=== PATIENT | male | born 1970 | race Caucasian/White ===

== ENCOUNTER 2024-07-14 09:30 | Emergency (ER) | payer SELFPAY ==
[2024-07-14 09:33] VITALS: BP 150/92
--- NOTE | 2024-07-14 09:56 | ED.GENMED ---
History of Present Illness
General
Chief Complaint: Back Pain
Source: patient
Time Seen by Provider: 07/14/24 09:48
History of Present Illness
History of Present Illness:
53-year-old male presents to the emergency room complaining of low back pain. Patient states he has chronic back pain but it is worse over the past 24 to 48 hours. Pain is on the right side. Does not radiate down his leg but does radiate to his
testicle. Movement makes the pain worse. Patient has a history of cervical disc disease for which she has had surgery. He was also told around that time that he had disc herniations in his lumbar spine. He does not see anyone for his low back
pain. He does not take any prescription medications. He denies IV drug use. He denies any bowel or bladder dysfunction. He denies numbness, weakness or tingling in his lower extremities. He has chronic paresthesias related to his cervical
surgery.
Past History
Past History
ED Past Medical History: None and Other (Rib fractures, blunt trauma May 2017)
Social History
Tobacco: Smoker
Alcohol: Daily
Drug: Marijuana
Personal: Single
Phy Exam
Physical Exam
Physical Exam:
General: Awake, Alert, Oriented X3. Appears uncomfortable with movement
Vitals: unremarkable
Head: Atraumatic
Eyes: Pupils equal, EOMI
Throat: Airway intact, no exudates
Neck: Trachea midline
Lungs: Clear and equal b/l
Heart: Regular rate, no murmurs
Abd: Soft, Nontender, No pulsatile mass
Back: No tenderness with palpation or percussion of the thoracic or lumbar spine, positive tenderness paraspinal musculature on the right
Neuro: Nonfocal
Skin: Warm, dry, no rash
Extremities: pulses equal b/l, no edema
Course
Orders/Labs/Results
Orders:
Orders
07/14/24 09:53
Ketorolac [Toradol] 15 mg IV NOW STA
07/14/24 09:54
CT Abd/pel Without Iv Or Oral Urgent
Comment:
Reason For Exam: r back pain
07/14/24 10:40
Basic Metabolic Panel Urgent
Complete Blood Count/With Diff Urgent
07/14/24 11:47
Urinalysis Reflex To Culture Urgent
Date Specimen was Collected: 07/14/24
Time Specimen was Collected: 11:45
Abnormal Lab Results
07/14/24
10:40
MCH 31.2 H pg
(27.0-31.0)
Absolute Monos (auto) 0.7 H 10^3/uL
(0.1-0.6)
Glucose 114 H mg/dl
(70-99)
07/14/24 10:40
07/14/24 10:40
Vital Signs
Initial and Last Documented VS:
Initial Vital Signs
Temp Pulse Resp BP Pulse Ox
97.8 F 73 20 150/92 99
07/14/24 09:33 07/14/24 09:33 07/14/24 09:33 07/14/24 09:33 07/14/24 09:33
Last Documented Vital Signs
Temp Pulse Resp BP Pulse Ox
97.8 F 68 20 139/86 97
07/14/24 09:33 07/14/24 12:37 07/14/24 09:33 07/14/24 12:37 07/14/24 12:37
MDM/Problems Addressed
Differential Diagnosis Includes:
kidney stone, uti, low back strain
*Radiology
Radiology exam reviewed: radiology read reviewed
*Pulse Oximetry
Patient hypoxic: no
*Critical Care Note
Total Time (30-74mins, 75-104mins- exclusive of procedures): Not Applicable
ED Attending Note
-
Portions of this chart may have been created with voice recognition software.� Occasional wrong word or��sound alike� substitutions may have occurred due to the inherent limitations of voice recognition software.
Discharge Plan
Departure
Patient Disposition: Home (Routine Discharge)
Date of Disposition: 07/14/24
Time of Disposition: 12:04
Patient with high blood pressure during this ER visit?: Yes
Condition: Good
Discharge Problem:
Low back pain
Instructions: Low Back Pain (DC), BLOOD PRESSURE
Prescriptions:
New
prednisone 20 mg tablet
40 mg PO DAILY Qty: 8 0RF
No Action
cephalexin 500 mg capsule
500 mg PO QID 7 Days Qty: 28 0RF
amoxicillin-pot clavulanate 875-125 mg tablet
1 tab PO BID Qty: 20 0RF
Referrals:
Richard Lares MD [Active] -
Donaldo Dominguez MD [Family Provider] -
Activity Restrictions/Additional Instructions:
Your workup today suggest your back pain is due to degenerative changes in the lumbar spine. I have prescribed a short course of steroids to help with this. You can also take Tylenol 650 mg every 6 hours as well as ibuprofen 400 mg every 6 hours.
You can also try [id number] lidocaine patch. I provided you contact information for a back pain specialist, Dr. Lares. Please call for the next available appointment. When you call let them know you are in the emergency room for back
pain.
Interventions
Interventions:
*Risk Screen - Suicide Last Done: 07/14/24 09:33
*General Assessment Last Done: 07/14/24 10:44
*Neglect/Abuse Screening Last Done: 07/14/24 10:44
ED- Fall Risk Assessment Last Done: 07/14/24 11:41
*ED COVID-19 Vaccine History Last Done: 07/14/24 10:45
*Nursing Disposition Last Done: 07/14/24 12:47
ED-Musculoskeletal Assessment Last Done: 07/14/24 11:41
Discharge Date and Time
Discharge Date/Time: 07/14/24 12:50
Print Language: PORTUGUESE
[2024-07-14] MEDS: TORADOL 15 MG IV (10:41)
[2024-07-14 10:46] VITALS: BMI 27.0
[2024-07-14 10:54] LABS: % Basophils 1.3 % (0-2); % Eosinophils 2.9 % (0-6); % Immature Granulocytes 0.2 % (0-0.5); % Lymphocytes 24.3 % (20.5-51.1); % Monocytes 8.4 % (1.7-9.3); % Neutrophils 62.9 % (42.2-75.2); Absolute Basophils 0.1 10^3/uL (0-0.2); Absolute Eosinophils 0.3 10^3/uL (0-0.7); Absolute Lymphocytes 2.1 10^3/uL (1.2-3.4); Absolute Monocytes 0.7 10^3/uL (0.1-0.6); Absolute Neutrophils 5.5 10^3/uL (1.4-6.5); Hemoglobin 15.2 g/dL (13.0-18.0); Mean Corp Hgb Conc. 34.5 g/dL (33.0-37.0); Mean Corpuscular Hgb 31.2 pg (27.0-31.0); Mean Corpuscular Volume 90.3 fL (80.0-94.0); Mean Platelet Volume 9.8 fL (7.4-10.4); Nucleated Red Blood Cells % 0 % (-); Platelet Count 267 10^3/uL (130-400); Red Blood Cell Count 4.87 10^6/uL (4.70-6.10); White Blood Cell Count 8.7 10^3/uL (4.8-10.8)
[2024-07-14 11:04] LABS: Blood Urea Nitrogen 18 mg/dl (9-20); Calcium 9.5 mg/dl (8.4-10.2); Carbon Dioxide 26 mmol/L (22-30); Chloride 102 mmol/L (98-107); Estimated Creatinine Clearance 119 ml/min; Glucose 114 mg/dl (70-99); Potassium 4.6 mmol/L (3.5-5.1); Sodium 140 mmol/L (135-145); eGFR > 60.00
[2024-07-14 12:11] LABS: Urine Albumin Negative (Neg - Trace); Urine Bilirubin Negative (Negative); Urine Character Clear (Clear); Urine Color Yellow; Urine Glucose Negative (Negative); Urine Ketone Negative (Negative); Urine Leukocyte Negative (Negative); Urine Nitrite Negative (Negative); Urine Occult Blood Negative (Negative); Urine Urobilinogen Negative (Neg - 1+); Urine pH 6.5 (5.0-9.0)
[2024-07-14 12:37] VITALS: BP 139/86
== END 2024-07-14 12:50 | disposition home or self-care (01) ==
LOC: EMR 09:30
PROVIDERS: EMERGENCY PHYSICIAN Emergency Medicine; FAMILY PHYSICIAN Family Medicine
DX: M54.50 Low back pain, unspecified (principal); F17.200 Nicotine dependence, unspecified, uncomplicated
CPT/HCPCS: 99284; 96374; 74176; 80048; 81003; 85025

== ENCOUNTER 2025-09-08 14:00 | Inpatient (IN) | payer SELFPAY ==
[2025-09-07] VITALS (9 sets, daily range): BP systolic 137–166; BP diastolic 84–103; BMI 25.7; BMI 24.9
--- NOTE | 2025-09-07 10:19 | ED.GENMED ---
History of Present Illness
General
Chief Complaint: Chest Pain
Time Seen by Provider: 09/07/25 10:19
History of Present Illness
History of Present Illness:
FOCUSED PAST MEDICAL HISTORY
- Smoker
REVIEW OF OLD RECORDS
- Has a history of polysubstance abuse and was admitted with abdominal pain with questionable sepsis and high lactic in November 2022
Note:
CHIEF COMPLAINT(S)
Chest pressure and left-sided weakness.
HISTORY OF PRESENT ILLNESS
The patient is a 54-year-old male who reports experiencing chest pressure that began on Sunday morning. The pressure has been constant since onset. Additionally, he describes left-sided weakness in both the arm and leg, with a noted difference in
sensation compared to the right side. The weakness and sensory abnormalities are accompanied by a 'weird feeling' on the left side. The patient denies any previous history of stroke. He reports poor blood pressure control recently, with a home blood
pressure reading of 164/110 last . Currently, the patients blood pressure is 149/95. He denies slurred speech or aphasia, and his communication appears intact.
REVIEW OF SYSTEMS
- Neurological: Left-sided weakness, sensory differences between left and right side, no slurred speech.
PHYSICAL EXAM
General: Alert, no acute distress.
Skin: Warm, dry.
Head: Normocephalic, atraumatic.
Neck: Supple, trachea midline.
Eyes, Ears, Nose, Mouth, and Throat: Oral mucosa moist.
Cardiovascular: Normal peripheral perfusion, No edema. Good strong pulse in the left radial artery.
Respiratory: Respirations are non-labored.
Gastrointestinal: Abdomen nondistended.
Back: Normal range of motion, Normal alignment.
Musculoskeletal: Normal range of motion,
Neurological: 4+ out of 5 strength in the left upper and left lower extremities, sensory deficits to the left side including face and extremities, normal coordination alert and oriented to person, place, time, and situation. Left-sided weakness and
sensory abnormalities, no slurred speech or aphasia.
Psychiatric: Cooperative, appropriate mood & affect.
PLAN
- Obtain a CT scan to further evaluate the cause of symptoms.
- Monitor blood pressure and consider antihypertensive management as indicated.
- Consider additional diagnostic tests to assess for potential cerebrovascular events.
DIFFERENTIAL DIAGNOSIS
The Differential Diagnosis includes, in no particular order and is not limited to:
1. Cerebrovascular Accident (Stroke)
2. Transient Ischemic Attack
3. Hypertensive Emergency
4. Myocardial Infarction
5. Peripheral Neuropathy
6. Multiple Sclerosis
7. Brain Tumor
8. Migraine with Aura
9. Corrales�s Palsy
10. Cervical Radiculopathy
RADIOLOGY
- CT imaging obtained
EKG
- Sinus 76, normal axis, no acute ST abnormality
LABS
- CBC, chemistries, troponin unremarkable
UPDATE
-SUMMARY OF ENCOUNTER
The patient, a 54-year-old male, was seen in the emergency department due to chest pressure and left-sided weakness, with concern for possible cerebrovascular events. A CT scan was conducted, which did not reveal definitive findings of stroke, but
the symptoms, particularly the subjective left-sided weakness, raised concerns for possible lacunar infarcts, likely related to prolonged high blood pressure. Due to the persistent symptoms and chest discomfort, the decision was made to admit the
patient for further monitoring to better evaluate the cause of symptoms and monitor blood pressure closely.
DISPOSITION
Admission to the hospital for further evaluation and monitoring.
ASSESSMENT
The assessment focuses on potential cerebrovascular accident (stroke) or transient ischemic attack given the left-sided weakness and sensory abnormalities. Persistent high blood pressure raises concern for possible lacunar infarcts. The combination
of these symptoms with chest pressure necessitates further evaluation in a hospital setting.
INDEPENDENT REVIEW OF LABS AND INTERPRETATION OF TESTS
My independent interpretation of the CT scan shows no definite findings indicative of stroke but raises concerns about possible lacunar infarcts.
MEDICAL DECISION MAKING
-Number and Complexity of Problems Addressed: Chronic conditions affecting care include hypertension. Differential diagnosis considerations include: Cerebrovascular Accident (Stroke), Transient Ischemic Attack, Hypertensive Emergency, Myocardial
Infarction, Peripheral Neuropathy, Multiple Sclerosis, Brain Tumor, Migraine with Aura, Corrales�s Palsy, Cervical Radiculopathy.
-Data:
Category [address] scan was independently interpreted, revealing no definitive stroke but raising concern for possible lacunar infarcts.
Category 3
Discussion of management with other physicians regarding hospital admission for further monitoring and evaluation of symptoms.
-Risk:
Due to the combination of symptoms and persistent issues, escalation of care via admission was deemed necessary to ensure patient safety.
DIAGNOSIS
- Possible Cerebrovascular Accident (Stroke), ICD-10: I63.9
- Hypertensive Heart Disease without Heart Failure, ICD-10: I11.9
Note: Formal diagnostic testing and further observations are required during the hospital stay to ascertain and confirm the diagnosis precisely.
Past History
Past History
ED Past Medical History: None and Other (Rib fractures, blunt trauma May 2017)
Social History
Tobacco: Smoker
Alcohol: Daily
Drug: Marijuana
Personal: Single
Phy Exam
Physical Exam
Physical Exam:
See HPI
Scores
Heart Score for Chest Pain Patients
STEMI patient?: Not applicable
Course
Orders/Labs/Results
Orders:
Orders
09/07/25 09:53
EKG [Electrocardiogram (*1)] Urgent
Reason for Study: Chest Pain
EKG- Treatment ONCE
09/07/25 10:12
Cardiac Monitoring- Treatment ONCE
Vital Signs As Directed
Frequency: Other
09/07/25 10:13
Complete Blood Count/With Diff Urgent
Comprehensive Metabolic Panel Urgent
PTT Urgent
Prothrombin Time Urgent
Troponin I Urgent
09/07/25 10:51
CT Head & Neck Angio W/wo IV Urgent
Comment:
Reason For Exam: 3d of acute L sided weakness, sens deficits
Abnormal Lab Results
09/07/25
10:13
RBC 4.61 L 10^6/uL
(4.70-6.10)
MCV 94.4 H fL
(80.0-94.0)
MCH 32.5 H pg
(27.0-31.0)
Absolute Monos (auto) 0.7 H 10^3/uL
(0.1-0.6)
Monocytes % 11.2 H %
(1.7-9.3)
Creatinine 0.6 L mg/dL
(0.7-1.3)
Glucose 103 H mg/dl
(70-99)
09/07/25 10:13
09/07/25 10:13
Vital Signs
Initial and Last Documented VS:
Initial Vital Signs
Temp Pulse Resp BP Pulse Ox
36.9 C 80 17 143/91 96
09/07/25 09:56 09/07/25 09:56 09/07/25 09:56 09/07/25 09:56 09/07/25 09:56
Last Documented Vital Signs
Temp Pulse Resp BP Pulse Ox
36.9 C 83 17 155/101 96
09/07/25 09:56 09/07/25 13:15 09/07/25 13:15 09/07/25 13:00 09/07/25 13:15
*Pulse Oximetry
SaO2: 96
Oxygen Mode of Delivery: Room air
Patient hypoxic: no
*Critical Care Note
Total Time (30-74mins, 75-104mins- exclusive of procedures): Not Applicable
ED Attending Note
-
Portions of this chart may have been created with voice recognition software.� Occasional wrong word or��sound alike� substitutions may have occurred due to the inherent limitations of voice recognition software.
Discharge Plan
Departure
Prescriptions:
No Action
cephalexin 500 mg capsule
500 mg PO QID 7 Days Qty: 28 0RF
amoxicillin-pot clavulanate 875-125 mg tablet
1 tab PO BID Qty: 20 0RF
prednisone 20 mg tablet
40 mg PO DAILY Qty: 8 0RF
Referrals:
UNKNOWN - PT NOT,INTERVIEWE [Family Provider]
Interventions
Interventions:
*Risk Screen - Suicide Last Done: 09/07/25 09:56
*General Assessment Last Done: 09/07/25 09:56
*Neglect/Abuse Screening Last Done: 09/07/25 09:56
*ED COVID-19 Vaccine History Last Done: 09/07/25 12:47
*ED Influenza Vaccine History Last Done: 09/07/25 12:47
ED- Cardiac Assessment Last Done: 09/07/25 12:47
Discharge Date and Time
Print Language: LUXEMBOURGISH
[2025-09-07 10:22] LABS: Hematocrit 43.5 % (39.0-52.0); Hemoglobin 15.0 g/dL (13.0-18.0); Mean Corp Hgb Conc. 34.5 g/dL (33.0-37.0); Mean Corpuscular Volume 94.4 fL (80.0-94.0); Nucleated Red Blood Cells % 0 % (-); Platelet Count 223 10^3/uL (130-400); Red Cell Dist. Width 12.4 % (11.5-14.5)
[2025-09-07 10:35] LABS: APTT 28.3 Sec (23.4-35.0); INR 0.96; PT 13.1 Sec (11.4-14.6)
[2025-09-07 10:38] LABS: ALT (SGPT) 40 U/L (0-50); AST (SGOT) 28 U/L (17-59); Albumin 4.1 g/dl (3.5-5.0); Alkaline Phosphatase 90 U/L (38-126); Blood Urea Nitrogen 14 mg/dl (9-20); Calcium 8.9 mg/dl (8.4-10.2); Carbon Dioxide 26 mmol/L (22-30); Chloride 107 mmol/L (98-107); Glucose 103 mg/dl (70-99); Potassium 4.2 mmol/L (3.5-5.1); Sodium 139 mmol/L (135-145); Total Protein 7.0 g/dl (6.3-8.2); eGFR > 60.00
[2025-09-07 10:49] LABS: Troponin I < 0.012 ng/ml
--- NOTE | 2025-09-07 15:27 | HPS.HSE ---
Family Physician
-
Family Physician: INTERVIEWE UNKNOWN - PT NOT
Chief Complaint
-
Intermittent chest pain and left-sided paresthesia
History of Present Illness
Patient is a 54 years old male with long history of tobacco smoking presents to the emergency room with few days of occasional midsternal chest pain and pressure which is not attributed to activities, nonpositional. He denies any syncope. Over the
last 2 to 3 days he also complains of a left face, left upper and lower extremity paresthesia and mild left lower extremity weakness felt on ambulation. He has occasional headache. Given persistent symptoms he presents to the emergency room for
evaluation
Medical History
Past Medical History
Past Medical History: Reports HTN; Denies CAD, Seizures or Valvular Disease
Additional Past Medical History:
Abdominal aortic aneurysm, untreated hypertension, abdominal aortic aneurysm
Past Surgical History: Reports Orthopedic
Social History
Tobacco: Smoker
Drug: Marijuana
Family History
Family History: Not pertinent
Allergies / Home Medications
Allergies reflects when Allergies were last updated in [facility].
Home Medications with original date entered in [facility]
Allergy/Medication List:
Allergies
Allergy/AdvReac Type Severity Reaction Status Date / Time
No Known Allergies Allergy Verified 07/14/24 09:33
Home Medications
No Meds [No Current Medications] 09/07/25
Review of Systems
-
A 12 point ROS was completed and negative except as noted: Yes
Physical Exam
Vital Signs
Vital Signs
Temp Pulse Resp BP Pulse Ox
98.5 F 86 20 148/92 96
09/07/25 09:56 09/07/25 15:15 09/07/25 15:15 09/07/25 15:00 09/07/25 15:15
Physical Exam
General: Well Developed, Well Nourished and No Apparent Distress
HEENT: NormoCephalic, Moist mucous membranes and Atraumatic
Respiratory: Clear
Cardiac: S1/S2 and Regular Rhythm; No Murmur or Rub
GI: Soft, Non Tender, Non Distended and Normal Bowel Sounds; No Organomegaly
Rectal: Deferred by Provider
Musculoskeletal: No Clubbing, No Cyanosis and No Edema
Skin: No Rash
Neuro: Awake, Alert, Oriented, AO x 3 and Other (Mild left face, upper extremity, lower extremity paresthesia with normal strength)
Laboratory Results
-
09/07/25 10:13
09/07/25 10:13
Laboratory Results
PT 13.1 Sec (11.4-14.6) 09/07/25 10:13
INR 0.96 09/07/25 10:13
APTT 28.3 Sec (23.4-35.0) 09/07/25 10:13
Total Bilirubin 0.3 mg/dl (0.2-1.3) 09/07/25 10:13
AST 28 U/L (17-59) 09/07/25 10:13
ALT 40 U/L (0-50) 09/07/25 10:13
Alkaline Phosphatase 90 U/L (38-126) 09/07/25 10:13
Troponin I < 0.012 ng/ml 09/07/25 10:13
Impression/Plan
-
IMPRESSION:
Intermittent chest pain
Persistent left face, upper and lower extremity paresthesia
Untreated hypertension
Tobacco smoking
Abdominal infrarenal aortic aneurysm 3.3 cm incidental imaging dated back to 12/21
Cervical spine disease with prior surgery
Imaging
CTA
1. No acute intracranial abnormality identified. There are bilateral focal areas of these attenuation along the thalami as above, for bithalamic chronic lacunar infarcts. As warranted, could be further evaluated with MRI.
2. Calcific atherosclerotic changes of the carotid arteries without flow-limiting stenosis.
3. Mild stenosis at the origin of the right vertebral artery. High-grade stenosis at the origin of the left vertebral artery. Moderate narrowing of the left vertebral at the level of C6. Moderate narrowing of the basilar artery probably related to
atherosclerosis.
4. High riding jugular bulb on the right as above.
5. Advanced changes of dental disease as described.
6. Emphysema. The patient should be assessed for an annual low dose lung cancer CT program, as pulmonary emphysema is an independent risk factor for lung cancer.
PLAN:
Intermittent chest pain nonexertional, pressure-like.
Exertional shortness of breath
ASCVD risk factors including hypertension, tobacco smoking, AAA has not evidence of PAD/ASCVD
ECG normal sinus rhythm without ischemia
Troponin negative NAD
KHADRA score 1
Continue telemetry monitoring
Serial cardiac markers and ECG
Echocardiogram
Consider cardiology evaluation while inpatient versus outpatient follow-up
Ultrasound to evaluate abdominal aortic aneurysm size/growth
If persistent symptoms, consider imaging cervical spine
Persistent left face, upper and lower extremity paresthesia
Exam with mild left-sided paresthesia at face, upper and lower extremity otherwise unremarkable with good bilateral strength
CTA as above
Additional diagnosis TIA/evolving CVA versus hypertensive urgency
Admit for neurologic evaluation
MRI of the brain
Lipid profile
Hemoglobin A1c
Start aspirin and high potency statin
Goal normotension. Monitor BP.
Start lisinopril 10 mg and monitor BP response
Tobacco smoking disorder.
COPD by imaging.
Complains of chronic cough.
Stable respiratory status upon presentation.
Counseling on quitting tobacco.
Start nicotine patch
--- NOTE | 2025-09-07 15:28 | CM ---
CM met with pt bedside
Pt resides alone in [place] with [address]
Pt is independent with his ADLs, no DMEs
Pt does not drive as without license at this time
Friends help with errands
Pt is employed at an [employer] and works in [employer] as well
Pt with out insurance as employer does not offer- has not applied for MA before
Pt pays cohen for physician visits and meds
PCP- Donaldo Waller (last visit 3-4 months prior)
Rx- [facility]
Pt is admitted under OBS- form not issued as pt uninsured
Referral made to [facility] for MA veto
Discharge Disposition- anticipate home no needs
[2025-09-07] MEDS: ASPIRIN 325 MG PO (15:51)
[2025-09-07] MEDS: PLAVIX 300 MG PO (15:51)
--- NOTE | 2025-09-07 16:19 | CON.NEURO4 ---
Consultation - Neurology 4
-
CONSULTING PHYSICIAN: Dr. Emeka Alfaro
REFERRING PHYSICIAN: Dr. Rayray Rodriguez
DICTATED BY: Dr. Emeka Alfaro
DATE/TIME OF REQUEST: 09/07/2025
DATE/TIME OF CONSULTATION: 09/07/2025
Reason for Consultation: Left sided weakness and numbness
ASSESSMENT AND PLAN:
The patient appears to have a right hemispheric stroke likely subcortical, and the etiology of stroke is small vessel disease secondary to uncontrolled hypertension.
. CT of the head does not show any acute intracranial abnormality, however the CT of the head shows chronic bilateral thalamic infarcts.
. The CTA of the head and neck shows a high-grade stenosis of the left vertebral artery and moderate narrowing of the basilar artery.
. The plan is to get MRI of the brain without contrast, echocardiogram and start the patient on dual antiplatelet therapy with aspirin 81 mg daily and Plavix 75 mg daily. The patient will be loaded with aspirin 325 mg x 1 and Plavix 300 mg x 1.
The patient will also be on atorvastatin 40 mg daily.
History of Present Illness:
The patient is a 54 years old male with a long history of tobacco use, who presented to the emergency room with complaint of left upper and lower extremity numbness and weakness, that started about 3 days ago. The patient did not come earlier to
the hospital but because of the persistence of symptoms, he presented to the ER for evaluation. He says that he does not have control over his left arm and left leg. He says that his blood pressure was high at home and was 164/112. He denies
taking any prescription medication for hypertension. He denies history of diabetes. The last known well time was about 3 days ago. There is no history of stroke in the past. The patient is not on any blood thinners at home. The NIHSS is 5. The
patient was not a candidate for TNK as he was outside the time window.
Review of Systems:
The patient denies headache, dizziness, chest pain, shortness of breath, fever, chills, nausea and vomiting.
Neurologic Examination:
The patient is alert and oriented x 3,
Speech is clear,
The cranial nerves II to XII are grossly intact,
The motor examination shows that the patient has a left upper and lower extremity drift and the strength in the right upper and lower extremities is grossly 5 out of 5.
The sensations are decreased on left side.
The cerebellar examination shows ataxia on [id number] and [id number]-su-[id number] tests on the left side.
NIHSS = 5
Vital Signs and Labs
-
Vital Signs and Labs:
Vital Signs
Temp Pulse Resp BP Pulse Ox
36.9 C 86 20 148/92 96
09/07/25 09:56 09/07/25 15:15 09/07/25 15:15 09/07/25 15:00 09/07/25 15:15
Lab Results
09/07/25 10:13
09/07/25 10:13
PT 13.1 Sec (11.4-14.6) 09/07/25 10:13
INR 0.96 09/07/25 10:13
APTT 28.3 Sec (23.4-35.0) 09/07/25 10:13
Sodium 139 mmol/L (135-145) 09/07/25 10:13
Potassium 4.2 mmol/L (3.5-5.1) 09/07/25 10:13
BUN 14 mg/dl (9-20) 09/07/25 10:13
Glucose 103 mg/dl (70-99) H 09/07/25 10:13
Calcium 8.9 mg/dl (8.4-10.2) 09/07/25 10:13
Medications
-
Home Medications
�Medication �Instructions �Recorded
No Meds [No Current Medications] 09/07/25
[2025-09-07] MEDS: NICODERM TRANSDERMAL 14 MG TRANSDERM (18:03)
[2025-09-07] MEDS: LOW STRENGTH ASPIRIN 81 MG PO (18:03)
[2025-09-07] MEDS: ZESTRIL 10 MG PO (18:03)
[2025-09-07] MEDS: CRESTOR 20 MG PO (18:03)
--- NOTE | 2025-09-07 18:34 | PTOTSP ---
ST Acute Care Evaluation
Pt currently presents with clinical symptoms that are suspicious for pharyngeal dysphagia as evident by consistent immediate coughing s/p ingestion of sequential sips of thin liquids as well as occasional delayed onset of coughing s/p single sips of
thin liquids which are difficult to differentiate from baseline cough, but could also be an indication of penetration/aspiration events. Pt also reports symptoms that are suspicious for esophageal dysphagia/dysfunction that would benefit from a
further GI work-up, including but not limited to: difficulty swallowing solids and pills (i.e., they frequently get stuck near proximal esophagus - liquids do not help them go down; pt occasionally needs to regurgitate them to alleviate symptoms
(~1x month)), and GERD symptoms daily that often wake him up in the middle of the night coughing and choking (previously prescribed meds (3 months ago) but he did not feel as though they helped him so he discontinued them).
Pt is at an elevated risk for aspiration from PO ingestion as well as from retrograde flow from the esophagus in the setting of possible TIA/CVA with L sided deficits, hx of ACDF, suspected esophageal dysphagia/dysfunction, and due to pt's elevated
risk for ETOH withdrawal while admitted given reported daily ETOH use of multiple drinks per day which may require administration of sedatives.
Recommendations:
- Continue with regular solids and thin liquids with SMALL SINGLE SIPS ONLY; meds as tolerated.
- STRICT aspiration and reflux precautions: HOB fully upright for all PO intake and for 60 minutes after PO intake; small bites/sips; slow intake rate; alternate solids/liquids.
- SCRAP STRIPPER HAND to f/u re: MRI of brain results to determine of pt would benefit from a cognitive communication evaluation.
- SCRAP STRIPPER HAND to f/u re: diet tolerance, use of compensatory strategies, and to determine most appropriate instrumental swallow study.
- Consider GI consultation given pt's persistent esophageal symptoms of dysphagia and under-managed reflux.
[2025-09-07 20:05] LABS: Troponin I < 0.012 ng/ml
[2025-09-08] VITALS (8 sets, daily range): BP systolic 122–172; BP diastolic 78–111; PULSE 84; O2SAT 97
[2025-09-08 02:13] LABS: Troponin I 0.013 ng/ml
[2025-09-08 06:31] LABS: Glycohemoglobin (HgbA1c) 5.3 % (4.0-5.9)
[2025-09-08] MEDS: NICODERM TRANSDERMAL 14 MG TRANSDERM (07:57)
[2025-09-08] MEDS: ZESTRIL 10 MG PO (07:58)
[2025-09-08] MEDS: LOW STRENGTH ASPIRIN 81 MG PO (07:58)
[2025-09-08] MEDS: PROTONIX 20 MG PO (10:23)
[2025-09-08 10:31] LABS: HDL Cholesterol 39 mg/dl; LDL Cholesterol, Calculated 153 mg/dl; Very Low Density Lipoprotein 19 mg/dl (0-30)
[2025-09-08 10:38] LABS: Iron 79 ug/dl (49-181)
[2025-09-08 10:47] LABS: Total Iron Binding Capacity 339 ug/dl (261-462)
[2025-09-08 11:44] LABS: TSH 1.31 uIU/ml (0.47-4.68)
[2025-09-08 12:12] LABS: Ferritin 81.5 ng/ml (17.9-464.0)
[2025-09-08 12:27] LABS: Vitamin B12 421 pg/ml (239-931)
--- NOTE | 2025-09-08 12:35 | PTOTSP ---
Patient demonstrates independence with functional mobility, transfers, ambulation and elevations.
At this time does not demonstrate further need for skilled physical therapy and will be discharged. If needs change, please re-consult.
--- NOTE | 2025-09-08 13:38 | CM ---
Patient seen at bedside on patient currently OBS and CM completed form with patient. Patient states he has talked to Fransisca from [facility] and she indicated patient did not qualify. Patient for test at this time. Per physician patient for change
to INP status due to CVA and recommendation is for home with outpatient speech therapy. CM will continue to follow for discharge planning needs.
Plan; home with outpatient therapy
--- NOTE | 2025-09-08 14:01 | W.PN.HOSP.TC ---
Today's Communication/Plan
-
Complete stroke workup
Initiated on DAPT and statin
Assessment / Plan
Assessment / Plan
IMPRESSION:
Intermittent chest pain
Persistent left face, upper and lower extremity paresthesia
Untreated hypertension
Tobacco smoking
Abdominal infrarenal aortic aneurysm 3.3 cm incidental imaging dated back to 12/21
Cervical spine disease with prior surgery
Imaging
CTA
1. No acute intracranial abnormality identified. There are bilateral focal areas of these attenuation along the thalami as above, for bithalamic chronic lacunar infarcts. As warranted, could be further evaluated with MRI.
2. Calcific atherosclerotic changes of the carotid arteries without flow-limiting stenosis.
3. Mild stenosis at the origin of the right vertebral artery. High-grade stenosis at the origin of the left vertebral artery. Moderate narrowing of the left vertebral at the level of C6. Moderate narrowing of the basilar artery probably related to
atherosclerosis.
4. High riding jugular bulb on the right as above.
5. Advanced changes of dental disease as described.
6. Emphysema. The patient should be assessed for an annual low dose lung cancer CT program, as pulmonary emphysema is an independent risk factor for lung cancer.
MRI
1. 1.1 cm ACUTE ISCHEMIC INFARCT in the RIGHT THALAMUS.
2. 6 mm chronic lacunar infarct in the left thalamus.
3. Moderate white matter leukoaraiosis in the frontal lobes.
4. Mild diffuse cerebral and cerebellar volume loss.
5. Severe discogenic degenerative disease at C3/C4 with a disc-osteophyte complex causing moderate spinal cord compression and central canal stenosis.
PLAN:
Acute CVA. 1.1 cm acute ischemic infarct in the right thalamus
Exam with mild left-sided paresthesia at face, upper and lower extremity otherwise unremarkable with good bilateral strength
Initiated on DAPT with Plavix load on 09/07
Stable neurologic status. Report team improvement of left-sided paresthesia
LDL 153
Hemoglobin A1c 5.3
Continue DAPT
Initiated on hide potency statin
Goal normotension, initiated on lisinopril
Intermittent chest pain nonexertional, pressure-like.
Exertional shortness of breath
ASCVD risk factors including hypertension, tobacco smoking, AAA has not evidence of PAD/ASCVD
ECG normal sinus rhythm without ischemia
Troponin negative NAD
KHADRA score 1
Continue telemetry monitoring
Serial cardiac markers and ECG
Echocardiogram
Consider cardiology evaluation while inpatient versus outpatient follow-up
Ultrasound to evaluate abdominal aortic aneurysm size/growth
If persistent symptoms, consider imaging cervical spine
Tobacco smoking disorder.
COPD by imaging.
Complains of chronic cough.
Stable respiratory status upon presentation.
Counseling on quitting tobacco.
Start nicotine patch
Anticipated Discharge: 24 - 48 hours
Subjective/Interval History
-
Date of Service: September 08, 2025
Objective Data
-
Vital Signs:
Vital Signs
Temp Pulse Resp BP Pulse Ox
97.5 F 70 18 139/92 98
09/08/25 11:00 09/08/25 11:00 09/08/25 11:00 09/08/25 11:00 09/08/25 11:00
I&O
09/07/25 09/08/25 09/09/25
06:59 06:59 06:59
Intake Total 240 / 240
Balance 240 / 240
Physical Exam
-
General: Well Developed and No Apparent Distress
HEENT: Normocephalic, Atraumatic and Moist Mucous Membranes
Respiratory: Clear to Auscultation
Cardiac: Regular Rhythm and S1/S2; Negative Murmur, Rub or Gallop
GI: Soft, Nontender, Nondistended and Normal Bowel Sounds; Negative Organomegaly
Rectal: Deferred by Provider
Musculoskeletal: No Clubbing, No Cyanosis and No Edema
Skin: Negative Rash
Neuro: Awake, Alert, Oriented, AO x 3 and Nonfocal/Grossly Intact
[2025-09-08] MEDS: PLAVIX 75 MG PO (14:56)
[2025-09-08] MEDS: CRESTOR 40 MG PO (17:35)
--- NOTE | 2025-09-08 19:28 | W.PN.NEURO.1 ---
Today's Communication / Plan
-
The patient had an acute ischemic infarct in the right thalamus, and the etiology of stroke is small vessel disease secondary to uncontrolled hypertension.
. MRI of the brain shows an acute ischemic infarct in the right thalamus.
. Echocardiogram: The ejection fraction is 50%. The interatrial septum appears to be normal and intact with no evidence of interatrial shunting.
. CT of the head does not show any acute intracranial abnormality, however the CT of the head shows chronic bilateral thalamic infarcts.
. The CTA of the head and neck shows a high-grade stenosis of the left vertebral artery and moderate narrowing of the basilar artery.
. Aspirin 81 mg daily and Plavix 75 mg daily. The patient will also be on rosuvastatin 40 mg daily.
Will sign off please call if you have any question.
Subjective/Objective
Subjective Data
Date of Service: September 08, 2025
History of Present Illness:
The patient is a 54 years old male with a long history of tobacco use, who presented to the emergency room with complaint of left upper and lower extremity numbness and weakness, that started about 3 days ago. The patient did not come earlier to
the hospital but because of the persistence of symptoms, he presented to the ER for evaluation. He says that he does not have control over his left arm and left leg. He says that his blood pressure was high at home and was 164/112. He denies
taking any prescription medication for hypertension. He denies history of diabetes. The last known well time was about 3 days ago. There is no history of stroke in the past. The patient is not on any blood thinners at home. The NIHSS was 5 at
the time of admission. The patient was not a candidate for TNK as he was outside the time window.
Review of Systems:
The patient denies headache, dizziness, chest pain, shortness of breath, fever, chills, nausea and vomiting.
Neurologic Examination:
The patient is alert and oriented x 3,
Speech is clear,
The cranial nerves II to XII are grossly intact,
The motor examination shows that the patient has a left upper and lower extremity drift and the strength in the right upper and lower extremities is grossly 5 out of 5.
The sensations are decreased on left side.
The cerebellar examination does not show ataxia.
NIHSS = 3
Objective Data
Vital Signs
Temp Pulse Resp BP Pulse Ox
36.8 C 73 18 147/98 98
09/08/25 15:00 09/08/25 15:00 09/08/25 15:00 09/08/25 15:00 09/08/25 15:00
Lab Results
09/07/25 10:13
09/07/25 10:13
PT 13.1 Sec (11.4-14.6) 09/07/25 10:13
INR 0.96 09/07/25 10:13
APTT 28.3 Sec (23.4-35.0) 09/07/25 10:13
Sodium 139 mmol/L (135-145) 09/07/25 10:13
Potassium 4.2 mmol/L (3.5-5.1) 09/07/25 10:13
BUN 14 mg/dl (9-20) 09/07/25 10:13
Glucose 103 mg/dl (70-99) H 09/07/25 10:13
Calcium 8.9 mg/dl (8.4-10.2) 09/07/25 10:13
LDL Cholesterol, Calc Cancelled 09/08/25 09:43
Vitamin B12 421 pg/ml (239-931) 09/07/25 10:13
Patient Allergies
No Known Allergies Allergy (Verified 07/14/24 09:33)
Vital Signs and Labs
-
Vital Signs and Labs:
Vital Signs
Temp Pulse Resp BP Pulse Ox
36.8 C 73 18 147/98 98
09/08/25 15:00 09/08/25 15:00 09/08/25 15:00 09/08/25 15:00 09/08/25 15:00
Lab Results
09/07/25 10:13
09/07/25 10:13
PT 13.1 Sec (11.4-14.6) 09/07/25 10:13
INR 0.96 09/07/25 10:13
APTT 28.3 Sec (23.4-35.0) 09/07/25 10:13
Sodium 139 mmol/L (135-145) 09/07/25 10:13
Potassium 4.2 mmol/L (3.5-5.1) 09/07/25 10:13
BUN 14 mg/dl (9-20) 09/07/25 10:13
Glucose 103 mg/dl (70-99) H 09/07/25 10:13
Calcium 8.9 mg/dl (8.4-10.2) 09/07/25 10:13
LDL Cholesterol, Calc Cancelled 09/08/25 09:43
Vitamin B12 421 pg/ml (239-931) 09/07/25 10:13
Medications
-
Active Medications
Generic Name Dose Route Start Last Admin
Trade Name Freq PRN Reason Stop Dose Admin
Aspirin 81 mg 09/07/25 17:16 09/08/25 07:58
Aspirin 81 Mg Chewable Tablet PO 10/05/25 17:15 81 mg
DAILY HARRY Administration
Clopidogrel Bisulfate 75 mg 09/08/25 15:00 09/08/25 14:56
Clopidogrel 75 Mg Tablet PO 10/06/25 14:59 75 mg
DAILY HARRY Administration
Lisinopril 10 mg 09/07/25 17:16 09/08/25 07:58
Lisinopril 10 Mg Tablet PO 10/05/25 17:15 10 mg
DAILY HARRY Administration
Nicotine 14 mg 09/07/25 17:16 09/08/25 07:57
Nicotine 14 Mg Patch TRANSDERM 10/05/25 17:15 14 mg
DAILY HARRY Administration
Pantoprazole Sodium 20 mg 09/08/25 10:00 09/08/25 10:23
Pantoprazole 20 Mg Delayed Release Tablet PO 10/06/25 09:59 20 mg
DAILY HARRY Administration
Rosuvastatin Calcium 40 mg 09/08/25 18:00 09/08/25 17:35
Rosuvastatin (Crestor) 20 Mg Tablet PO 10/06/25 17:59 40 mg
QPM HARRY Administration
Sodium Chloride 0 flush 09/07/25 18:00
Sodium Chloride 0.9% (Flush) Syringe IV 10/05/25 17:59
PER PROTOCOL HARRY
Home Medications
�Medication �Instructions �Recorded
No Meds [No Current Medications] 09/07/25
[2025-09-09] MEDS: MELATONIN 3 MG PO (00:47)
[2025-09-09 03:00] VITALS: BP 118/76
[2025-09-09 07:44] VITALS: BP 118/81
[2025-09-09] MEDS: NICODERM TRANSDERMAL 14 MG TRANSDERM (07:51)
[2025-09-09] MEDS: LOW STRENGTH ASPIRIN 81 MG PO (07:51)
[2025-09-09] MEDS: PROTONIX 20 MG PO (07:51)
[2025-09-09] MEDS: ZESTRIL 10 MG PO (07:51)
[2025-09-09] MEDS: PLAVIX 75 MG PO (07:51)
[2025-09-09 11:01] VITALS: BP 131/80
--- NOTE | 2025-09-09 11:28 | W.DS.TRANS ---
DC Summary - [employer] Super[employer]
-
Discharge Instructions:
Discharge Diagnosis/Procedures CVA
Diet Regular
Instructions:
Stand-Alone Forms:
Changes to Home Medications: Yes
Discharge Medications:
DC Medications w/original date entered in [facility]
aspirin 81 mg chewable tablet 81 mg PO DAILY #30 tabs 09/09/25
clopidogrel 75 mg tablet 75 mg PO DAILY #20 tabs 09/09/25
lisinopril 10 mg tablet 10 mg PO DAILY #30 tabs 09/09/25
nicotine 14 mg/24 hr daily transdermal patch 14 mg transdermal DAILY #30 ea 09/09/25
pantoprazole 20 mg tablet,delayed release 20 mg PO DAILY #30 tabs 09/09/25
rosuvastatin 20 mg tablet 40 mg (2 x 20 mg) PO QPM #30 tabs 09/09/25
Home Medication Changes
All of above
Pending Results: No
--- NOTE | 2025-09-09 13:40 | CM ---
Pt cleared for discharge to home today. He is aware of recommendation for outpatient speech therapy and has the information to contact and make an appointment.
Plan: Discharge to home with outpatient speech therapy.
== END 2025-09-09 13:21 | disposition home or self-care (01) | DRG 65 ==
LOC: 3 WEST ACU 14:00
PROVIDERS: ADMITTING PHYSICIAN Internal Medicine; CONSULT PHYSICIAN Psychiatry & Neurology Neurology; EMERGENCY PHYSICIAN Emergency Medicine
DX: I63.81 Other cerebral infarction due to occlusion or stenosis of small artery (principal); I69.354 Hemiplegia and hemiparesis following cerebral infarction affecting left non-dominant side; F17.200 Nicotine dependence, unspecified, uncomplicated; I16.0 Hypertensive urgency; R29.705 NIHSS score 5; Z79.899 Other long term (current) drug therapy
CPT/HCPCS: 70496; 70498; 70551; 76770; 80053; 80061; 82607; 82728; 83036; 83540; 83550; 84443; 84484; 85025; 85610; 85730; 92523; 92526; 92610; 93005; 93306; 97116; 97163; 97166; 97535; 99285; Q9967